=== PATIENT | male | born 1995 | race Two or more races ===

== ENCOUNTER 2021-05-12 14:52 | Emergency (ER) | payer SELFPAY ==
[2021-05-12 14:53] VITALS: BP 138/86; PULSE 108; RESP 14; TEMP 37.4; O2SAT 100
--- NOTE | 2021-05-12 14:59 | ECG_ITS ---
Measurements Intervals Kell Rate: 101 P: OR: 0 QRS: 75 QRSD: 87 T: 49 QT: 328 QTc: 425 Interpretive Statements SINUS RHYTHM BORDERLINE ECG Electronically Signed On 05-12-2021 15:40:00 CDT by Presley Guan D.O.
--- NOTE | 2021-05-12 15:01 | PC.NURSE ---
1000 MLS/NS infused at this time, initiated per EMS in route, 0 volume left in container.
[2021-05-12 15:30] VITALS: BP 129/76; PULSE 94; RESP 13; O2SAT 100
[2021-05-12] MEDS: LACTATED RINGERS 1,000 ML 999 ML IV CONT (15:30)
[2021-05-12 16:00] LABS: Basophils Percent Auto 0.2 % (0.2-1.2); Eosinophils Percent Auto 0.3 % (0-4.4); Hematocrit 42.4 % (42.0-52.0); Hemoglobin 13.2 g/dL (14.0-18.0); Immature Granulocyte Absolute 0.04 K/mm3 (0.00-0.031); Immature Granulocyte Percent A 0.4 % (0-0.5); Immature Platelet Fraction Pct 8.8 % (0.9-11.2); Lymphocytes Absolute Auto 1.35 K/mm3 (0.9-3.2); Lymphocytes Percent Auto 14.9 % (18.3-44.2); Mean Corpuscular HGB Conc 31.1 g/dl (32-36); Mean Corpuscular Hemoglobin 22.6 pg (26-34); Mean Corpuscular Volume 72.6 fl (80-100); Monocytes Absolute Auto 0.4 K/mm3 (0.1-0.6); Monocytes Percent Auto 4.7 % (2.6-8.5); Neutrophils Absolute Auto 7.2 K/mm3 (1.3-6.7); Neutrophils Percent Auto 79.5 % (45.5-73.1); Platelet Count Result 144 k/mm3 (150-375); Red Blood Count 5.84 M/mm3 (4.6-6.20); White Blood Count 9.1 K/mm3 (4.5-10.0)
[2021-05-12 16:06] LABS: Anion Gap 4 mmol/L (8-16); Blood Urea Nitrogen 16 mg/dL (9-20); Calcium 8.6 mg/dL (8.4-10.2); Carbon Dioxide 25 mmol/L (22-30); Chloride 110 mmol/L (98-107); Estimated CRCL calculation 97 ml/min; Estimated Glomerular Filt Rate > 60; Glucose 85 mg/dL (65-110); Potassium 3.5 mmol/L (3.4-5.0); Sodium 139 mmol/L (137-145)
[2021-05-12 16:07] LABS: Creatine Kinase 240 U/L (55-170); Magnesium 1.7 mg/dL (1.6-2.3)
[2021-05-12 16:36] LABS: Add Urine Microscopic? YES; Appearance Urine Clear (Clear); Bilirubin Urine Negative (Negative); Blood Urine Negative (Negative); Color Urine Yellow (Yellow); Glucose Urine UA Negative (Negative); Ketones Urine Trace mg/dL (Negative); Leukocyte Esterase Ur Negative LEU/UL (Negative); Nitrate Urine Negative (Negative); Protein Urine 1+ mg/dL (Negative); RBC Urine 0-2 /hpf (0-2); Specific Grav Ur 1.027 (1.001-1.035); Urobilinogen Urine Negative mg/dL (<2.0); WBC Urine 0-3 /hpf
[2021-05-12 16:41] VITALS: BP 108/61; PULSE 60; RESP 13; O2SAT 100
[2021-05-12] MEDS: ONDANSETRON INJ 4 MG/2 ML VIAL IV PUSH (16:41)
--- NOTE | 2021-05-12 17:30 | ED.GENADULT ---
HPI - General Adult General Chief complaint: Environmental Exposure Stated complaint: Unspecified Time Seen by Provider: 05/12/21 15:06 Source: patient, RN notes reviewed and other Mode of arrival: ambulatory Limitations: no limitations History of Present Illness HPI narrative: Patient is a 25-year-old male who presents to emergency department for evaluation of heat exhaustion was working in the heat today became fatigued and nauseous had brief syncopal episode did not fall presented per EMS for this and on arrival notes generalized aching nausea and fatigue patient notes that he had felt fine prior to the onset of this working in the heat today patient on arrival does not appear distressed but is uncomfortable appearing patient denies any other symptoms or complaints and is resting as noted in no distress upon arrival Related Data Allergies Allergy/AdvReac Type Severity Reaction Status Date / Time No Known Allergies Allergy Verified 05/12/21 15:01 Review of Systems Review of Systems: All systems reviewed & are unremarkable except as noted in HPI and below PMFSH Social History Social History (Updated 05/12/21 @ 17:34 by Josiah Marie PA-C) Smoking status: Never smoker Gender identity (if verbalized by the patient): Male Exam Narrative: GENERAL: Well-appearing, well-nourished, uncomfortable and in no acute distress. HEAD: Normocephalic, atraumatic. EYES: PERRLA and EOMI. ENT: Nares clear, no rhinorrhea or epistaxis. Mucous membranes moist. CHEST: Clear to auscultation. No respiratory distress. No wheezes rales or rhonchi HEART: Regular rate and rhythm. No murmur heard. Normal peripheral pulses. ABDOMEN: Soft, mild tenderness in the upper quadrants of the abdomen, nondistended, cash EXTREMITIES: Normal range of motion. No edema. SKIN: Warm, dry, no rash. NEURO: No focal deficits. Alert and oriented x3. Cranial nerves II through XII grossly intact PSYCH: Normal mood and affect. Course Course Emergency Course: Patient was hydrated in the emergency department medicated feeling better tolerating p.o. intake is aware of case findings treatment plan and diagnosis agrees to follow-up on an outpatient basis will stay home out of the heat tomorrow patient also agrees to return if symptoms worsen and is felt appropriate for outpatient reevaluation Vital Signs Vital signs: Vital Signs Temperature 99.4 F 05/12/21 14:53 Pulse Rate 108 H 08/09/21 14:53 Respiratory Rate 14 05/12/21 14:53 Blood Pressure 138/86 05/12/21 14:53 Pulse Oximetry 100 05/12/21 14:53 Temperature 99.4 F 05/12/21 14:53 Pulse Rate 60 05/12/21 16:41 Respiratory Rate 13 05/12/21 16:41 Blood Pressure 108/61 05/12/21 16:41 Pulse Oximetry 100 05/12/21 16:41 Medical Decision Making MDM Narrative Medical decision making narrative: Patient evaluated for what appeared to be heat exhaustion nondistressed feeling better 2 L in the emergency department no other high risk changes in the evaluation will be discharged with reasons to return and follow-up he agrees with this plan he is afebrile nontoxic-appearing no distress will be discharged home Vital Signs Vital Signs: Vital Signs Temperature 99.4 F 05/12/21 14:53 Pulse Rate 108 H 05/12/21 14:53 Respiratory Rate 14 05/12/21 14:53 Blood Pressure 138/86 05/12/21 14:53 Pulse Oximetry 100 05/12/21 14:53 Temperature 99.4 F 05/12/21 14:53 Pulse Rate 60 05/12/21 16:41 Respiratory Rate 13 05/12/21 16:41 Blood Pressure 108/61 05/12/21 16:41 Pulse Oximetry 100 05/12/21 16:41 Lab Data Result diagrams: 05/12/21 15:49 05/12/21 15:49 Labs: Lab Results 05/12/21 05/12/21 05/12/21 Range/Units 15:49 15:49 15:49 WBC 9.1 (4.5-10.0) K/mm3 RBC 5.84 (4.6-6.20) M/mm3 Hgb 13.2 L (14.0-18.0) g/dL Hct 42.4 (42.0-52.0) % MCV 72.6 L (80-100) fl MCH 22.6 L (26-34) pg MCHC 31.1 L (32-36)
[2021-05-12 18:01] VITALS: BP 112/68; PULSE 77; RESP 13; O2SAT 100
== END 2021-05-12 18:02 | disposition home or self-care (01) ==
PROVIDERS: Emergency Medicine; Emergency Medicine Emergency Medical Services; Emergency Provider Emergency Medicine
DX: T67.5XXA Heat exhaustion, unspecified, initial encounter (principal); X30.XXXA Exposure to excessive natural heat, initial encounter; R94.31 Abnormal electrocardiogram [ECG] [EKG]
CPT/HCPCS: 36415; 80048; 81001; 82550; 83735; 85025; 85055; 93005; 96361; 96365; 96375; 99284; J0131; J2405; J7120